=== PATIENT | female | born 1970 | race Caucasian/White ===

== ENCOUNTER 2022-01-16 19:58 | Emergency (ER) | payer OTHER ==
[~2022-01-16 19:58] MED LIST: GABAPENTIN100 MG PO; LODINE400 MG PO; NORCO 5/3251 EACH PO; VOLTAREN100 GM TOP
[2022-01-16 20:17] LABS: BASOPHIL 0.4 % (0-2); HCT 43.8 % (37.0-47.0); HGB 14.4 g/dl (12.5-16.0); LYMPHOCYTE 40.3 % (15-48); MCHC 32.9 g/dL (32.0-36.0); MONOCYTE 5.6 % (0-12); MPV 9.4 fL (6.0-9.5); NEUTROPHIL 51.5 % (41-80); NRBC 0; PLT 252 K/uL (150-400); RBC 5.34 M/uL (4.20-5.40); RDW 14.8 % (11.5-14.0); WBC 12.2 K/uL (4.0-10.5)
[2022-01-16 20:36] LABS: BUN/CREAT RATIO (CALC) 15.9 RATIO; CREATININE 0.69 mg/dL (0.51-0.95)
[2022-01-16] MEDS ORDERED: PHENERGAN25 M1 PO (22:20)
== END 2022-01-16 22:49 | disposition home or self-care (01) ==
LOC: FER 19:58
PROVIDERS: Internal Medicine
DX: K21.9 Gastro-esophageal reflux disease without esophagitis (principal); R07.89 Other chest pain; E10.9 Type 1 diabetes mellitus without complications; F17.210 Nicotine dependence, cigarettes, uncomplicated
CPT/HCPCS: 36415; 71045; 80048; 83880; 84484; 85025; 93005